=== PATIENT | male | born 1990 | race Caucasian/White ===

== ENCOUNTER 2017-01-12 17:10 | Emergency (ER) | payer OTHER ==
[~2017-01-12] VITALS: Ht 185.4 cm; Wt 130.9 kg
[~2017-01-12 17:10] MED LIST: AUGMENTIN875 MG PO; BACTRIM,SEPT1 TABLET PO; LIDOCAINE20 MG/1 M5 PO; LISINOPRIL10 MG PO; LORTAB 5-325 M1 EACH PO; MEDROL DOSEPAK4 MG PO; MOBIC15 MG PO; MOTRIN600 MG PO; MOTRIN800 MG PO; NAPROSYN500 MG PO; PEN-VEE K,VEET250 MG PO; PEN-VEE K,VEET500 MG PO; ROBITUSSIN AC,T10 ML PO; TRAMADOL HCL50 MG PO; ULTRAM50 MG PO; ZITHROMAX TRI-500 MG PO
[2017-01-12 19:48] LABS: EOSINOPHIL (%) 2.2 % (0-5); EOSINOPHIL COUNT 0.2 K/uL (0-0.3); HEMATOCRIT 40.6 % (38.0-50.0); IMMATURE GRANULOCYTE (%) 0.2 % (0.0-0.7); INSTRUMENT ABS NEUTROPHIL CT 4.7 K/uL; MCH 30.9 PG (29.0-34.0); MCV 88.5 FL (86-99); MEAN PLAT.VOLUME 11.4 uM^3 (9.0-12.4); MONOCYTE COUNT 0.6 K/uL (0-0.8); NEUTROPHIL (%) 54.8 % (45-76); NEUTROPHIL COUNT 4.7 K/uL (1.8-6.4); PLATELET COUNT 175 K/uL (156-360); RBC DIS.WIDTH-CV 12.6 % (11.8-14.6); RBC DIS.WIDTH-SD 41.1 % (39-53); RED BLOOD COUNT 4.59 M/uL (4.00-5.50); WHITE BLOOD COUNT 8.6 K/uL (4.1-10.2)
[2017-01-12 19:59] LABS: CHLORIDE 105 mEq/L (99-109); POTASSIUM 3.6 mEq/L (3.7-5.4); SODIUM 139 mEq/L (136-147)
[2017-01-12 20:00] LABS: ADD MIUA? YES; BILIRUBIN NEGATIVE; BLOOD MODERATE; COLOR STRAW ((YELLOW)); GLUCOSE (STRIP) NEGATIVE; KETONES NEGATIVE; LEUKOCYTES NEGATIVE; NITRITE NEGATIVE; PROTEIN (STRIP) NEGATIVE; SPECIFIC GRAVITY 1.006 (1.000-1.030); UROBILINOGEN 0.2 MG/DL (0.2-1.0)
[2017-01-12 20:01] LABS: GLUCOSE 100 mg/dL (70-99)
[2017-01-12 20:03] LABS: ANION GAP 10 MEQ/L (2-14); TOTAL BILIRUBIN 0.4 mg/dL (0.0-1.0)
[2017-01-12 20:05] LABS: ALKALINE PHOSPHATASE 68 IU/L (3-129); GFR ESTIMATE (CALCULATED) > 59 mL/min/
[2017-01-12 20:06] LABS: UREA NITROGEN (BUN) 10 mg/dL (9-23)
[2017-01-12 20:08] LABS: LIPASE 25 U/L (1.0-51.0)
[2017-01-12 20:10] LABS: BACTERIA RARE /HPF; EPITHELIAL CELLS NONE SEEN /HPF; MUCUS NONE SEEN /LPF; RED BLOOD CELLS 0-5 /HPF (0-5); WHITE BLOOD CELLS 0-5 /HPF (0-5)
[2017-01-12 20:31] LABS: PTT 31.8 (25-32)
[2017-01-12] MEDS ORDERED: ANUSOL HC,ANUCO25 MG PR (21:44)
[2017-01-12 21:55] VITALS: BP 133/87
[2017-01-19 09:46] LABS: POC NON-PRINT COM 1 ND
== END 2017-01-12 21:55 | disposition home or self-care (01) ==
LOC: RME 17:10 → EME 17:10 → RME 21:55
PROVIDERS: Physician Assistant
DX: K62.5 Hemorrhage of anus and rectum (principal); K57.90 Diverticulosis of intestine, part unspecified, without perforation or abscess without bleeding; I10 Essential (primary) hypertension; F17.200 Nicotine dependence, unspecified, uncomplicated
CPT/HCPCS: 74177; 80053; 81003; 82272; 83605; 83690; 85025; 85610; 85730; 99281; 99284